=== PATIENT | male | born 1980 | race American Indian/Alaskan Native ===

== ENCOUNTER 2017-10-21 16:33 | Emergency (ER) | payer SELFPAY ==
[2017-10-21] MEDS ORDERED: NACL 0.9% 1000 ML 1,000 ML IV ONE (17:05)
[2017-10-21 17:40] LABS: Basophils % (Auto) 0.4 % (0.0-1.8); Hematocrit 40.7 % (35.5-45.6); Hemoglobin 13.8 gm/dl (11.8-15.2); Lymphocytes # (Auto) 2.1 K/mm3 (1.2-5.4); Lymphocytes % (Auto) 45.2 % (13.4-35.0); Mean Corpuscular HGB Conc 34 % (32-34); Mean Corpuscular Hemoglobin 30 pg (28-32); Mean Corpuscular Volume 88 fl (84-94); Monocytes # (Auto) 0.3 K/mm3 (0.0-0.8); Monocytes % (Auto) 5.4 % (0.0-7.3); Platelet Count 199 K/mm3 (140-440); Red Blood Count 4.64 M/mm3 (3.65-5.03); Red Cell Distribution Width 12.7 % (13.2-15.2)
[2017-10-21 18:37] LABS: Alanine Aminotransferase 14 units/L (7-56); Albumin 4.7 g/dL (3.9-5); BUN/Creatinine Ratio 14; Blood Urea Nitrogen 13 mg/dL (9-20); Calcium 9.3 mg/dL (8.4-10.2); Hemolysis Index 18
--- NOTE | 2017-10-21 21:04 | Emergency Department Report ---
ED Abdominal Pain HPI - General Chief Complaint: Abdominal Pain Stated Complaint: SEVERE ABD PAIN Time Seen by Provider: 10/21/17 20:59 Source: patient Mode of arrival: Ambulatory Limitations: No Limitations - History of Present Illness Initial Comments: Patient is a 36-year-old male that presents emergency room with severe abdominal pain that is worsening. Patient states that abdominal pain started 3 days ago it as a 10 out of 10. Patient states abdominal pain is periumbilical and radiates up to his epigastrium. Patient states the pain is better with rest and worse with movement. Patient states he has taken Advil with some relief. Patient denies nausea and vomiting. Patient denies diarrhea. Patient denies fever chills. Patient denies chest pain shortness of breath. Patient states he has not been on bowel movement for 3 days. Patient states she's had a long history of umbilical hernia without complications. Patient states she is also been having a headache for 3 days. Patient states the headache is improved with Advil. Patient denies dizziness. Patient denies vertigo. Patient denies visual changes. Patient denies confusion. Patient denies LOC. Patient states the pain is better with rest and Advil. Patient states at this moment the headache is a 0 out of 10 and has resolved. MD Complaint: abdominal pain -: Sudden Location: periumbilical Radiation: epigastric Migration to: no migration Severity: severe Severity scale (0 -10): 10 Quality: stabbing Consistency: constant Improves With: rest Worsens With: movement Associated Symptoms: denies other symptoms. denies: nausea, vomiting, diarrhea , fever, chills, constipation, dysuria, hematemesis, hematochezia, melena, hematuria, anorexia, syncope Treatments Prior to Arrival: NSAIDs - Related Data Previous Rx's Medication Instructions Recorded Last Taken Type methylPREDNISolone [Medrol] 4 mg PO DAILY #1 tab.ds.pk 10/22/17 Unknown Rx traMADol [Ultram 50 MG tab] 50 mg PO Q6HR PRN #20 tablet 10/22/17 Unknown Rx Allergies Allergy/AdvReac Type Severity Reaction Status Date / Time No Known Allergies Allergy Unverified 09/24/15 19:05 ED Review of Systems ROS: Stated complaint: SEVERE ABD PAIN Other details as noted in HPI Constitutional: denies: chills, fever Eyes: denies: eye pain, eye discharge, vision change ENT: denies: ear pain, throat pain Respiratory: denies: cough, shortness of breath, wheezing Cardiovascular: denies: chest pain, palpitations Endocrine: no symptoms reported Gastrointestinal: abdominal pain. denies: nausea, diarrhea Genitourinary: denies: urgency, dysuria Musculoskeletal: denies: back pain, joint swelling, arthralgia Skin: denies: rash, lesions Neurological: headache. denies: weakness, paresthesias Psychiatric: denies: anxiety, depression Hematological/Lymphatic: denies: easy bleeding, easy bruising ED Past Medical Hx - Past Medical History Previous Medical History?: No - Surgical History Past Surgical History?: No - Social History Smoking Status: Never Smoker Substance Use Type: None - Medications Home Medications: Home Medications Medication Instructions Recorded Confirmed Last Taken Type methylPREDNISolone [Medrol] 4 mg PO DAILY #1 tab.ds.pk 10/22/17 Unknown Rx traMADol [Ultram 50 MG tab] 50 mg PO Q6HR PRN #20 tablet 10/22/17 Unknown Rx ED Physical Exam - General Limitations: No Limitations General appearance: alert, in no apparent distress - Head Head exam: Present: atraumatic, normocephalic - Eye Eye exam: Present: normal appearance - ENT ENT exam: Present: mucous membranes moist - Neck Neck exam: Present: normal inspection - Respiratory Respiratory exam: Present: normal lung sounds bilaterally. Absent: respiratory distress - Cardiovascular Cardiovascular Exam: Present: regular rate, normal rhythm. Absent: systolic murmur, diastolic murmur, rubs, gallop - GI/Abdominal GI/Abdominal exam: Present: soft, tenderness (tenderness noted periumbilical.), normal bowel sounds, hernia (umbilical hernia noted however is completely reducible and nontender over hernia) - Rectal Rectal exam: Present: deferred - Extremities Exam Extremities exam: Present: normal inspection - Back Exam Back exam: Present: normal inspection - Neurological Exam Neurological exam: Present: alert, oriented X3 - Psychiatric Psychiatric exam: Present: normal affect, normal mood - Skin Skin exam: Present: warm, dry, intact, normal color. Absent: rash ED Course Vital Signs 10/21/17 10/21/17 10/21/17 16:46 21:53 22:00 Temperature 98.9 F 98.2 F Pulse Rate 69 51 L Respiratory 16 18 Rate Blood Pressure 108/62 112/79 Blood Pressure 116/71 [Left] O2 Sat by Pulse 98 99 100 Oximetry 10/21/17 10/21/17 23:00 23:48 Temperature Pulse Rate Respiratory Rate Blood Pressure 105/68 105/68 Blood Pressure [Left] O2 Sat by Pulse 100 98 Oximetry - Reevaluation(s) Reevaluation #1: Discussed all results with patient. Patient agrees with plan of care and discharged home. Patient is stable for discharge. Patient was given discharge instructions. 10/22/17 01:17 ED Medical Decision Making - Lab Data Result diagrams: 10/21/17 17:12 10/21/17 17:12 - Radiology Data Radiology results: report reviewed FINDINGS: The liver, biliary system, pancreas, spleen, adrenal glands, kidneys and bladder are unremarkable. The pelvic organs are normal. There is no evidence of mass, pathological calcification, or fluid collection noted within the abdomen or pelvis. The opacified and unopacified portions of the gastrointestinal tract are unremarkable. Moderate volume formed colonic stool is present. The appendix is not discretely visualized however there is no pericecal inflammatory change identified. There is no lymphadenopathy. No acute osseous abnormality. Incidental fat containing umbilical hernia. IMPRESSION: No CT evidence of acute abdominopelvic process. Moderate volume formed colonic stool. Incidental, fat containing umbilical hernia. Transcribed By: DT Dictated By: PARRIS RENDON DO Electronically Authenticated By: PARRIS RENDON DO Signed Date/Time: 10/22/1748 DD/ TD/TT: 10/22/1748 - Medical Decision Making Patient is a 36-year-old male that presents emergency room with complaints of periumbilical abdominal pain that radiates to the epigastric region. Patient was found to have a umbilical hernia and constipation. CT scan was done and was normal except for constipation and the fat-containing umbilical hernia. Umbilical hernia is reducible. We'll refer patient to a general surgeon for further evaluation and treatment. Patient will be instructed to follow-up with primary care in 3-5 days. Patient will be instructed to take meds as directed and return to ER if condition worsens. Patient given return to ER instructions. - Differential Diagnosis umbilical hernia. Obstruction. Abdominal pain. Gastroenteritis. Critical care attestation.: If time is entered above; I have spent that time in minutes in the direct care of this critically ill patient, excluding procedure time. ED Disposition Clinical Impression: Umbilical hernia without obstruction or gangrene Abdominal pain Qualifiers: Abdominal location: periumbilical Qualified Code(s): R10.33 - Periumbilical pain Headache Qualifiers: Headache type: tension-type Headache chronicity pattern: acute headache Intractability: not intractable Qualified Code(s): G44.209 - Tension-type headache, unspecified, not intractable Constipation Qualifiers: Constipation type: unspecified constipation type Qualified Code(s): K59.00 - Constipation, unspecified Disposition: TO HOME OR SELFCARE Is pt being admited?: No Does the pt Need Aspirin: No Condition: Stable Instructions: Constipation (ED), Tension Headache (ED), High Fiber Diet (ED), Umbilical Hernia (ED), Acute Headache (ED) Additional Instructions: Patient is to follow-up with primary care in 3-5 days. Patient to follow up with general surgeon in 3-5 days. Patient to return to ER if condition worsens. Patient to take Tylenol or ibuprofen when necessary for pain. Patient to increase water. Patient to rest. Prescriptions: methylPREDNISolone [Medrol] 4 mg PO DAILY #1 tab.ds.pk traMADol [Ultram 50 MG tab] 50 mg PO Q6HR PRN #20 tablet PRN Reason: Pain Referrals: PRIMARY CARE,MD [Primary Care Provider] - 3-5 Days JAVED SANCHEZ DO [Staff Physician] - 3-5 Days Forms: Work/School Release Form(ED) Time of Disposition: 01:19
[2017-10-21 21:47] LABS: Bilirubin,Urine NEG (Negative); Blood,Urine NEG (Negative); Color,Urine Yellow (Yellow); Protein,Urine <15 mg/dL mg/dL (Negative); Urobilinogen,Urine < 2.0 mg/dL (<2.0); WBC,Urine < 1.0 /HPF (0.0-6.0)
[2017-10-21] MEDS ORDERED: DILAUDID IV ONE (22:55)
[2017-10-21] MEDS ORDERED: NACL 0.9% 1000 ML 1,000 ML ONE (23:09)
[2017-10-21 23:48] VITALS: BP 105/68
--- NOTE | 2017-10-22 00:49 | Cat Scan Report ---
FINAL REPORT EXAM: CT ABDOMEN PELVIS W CON HISTORY: Abdominal pain TECHNIQUE: CT evaluation performed of the abdomen and pelvis following IV and oral contrast administration. Coronal and sagittal imaging also provided for interpretation. PRIORS: None. FINDINGS: The liver, biliary system, pancreas, spleen, adrenal glands, kidneys and bladder are unremarkable. The pelvic organs are normal. There is no evidence of mass, pathological calcification, or fluid collection noted within the abdomen or pelvis. The opacified and unopacified portions of the gastrointestinal tract are unremarkable. Moderate volume formed colonic stool is present. The appendix is not discretely visualized however there is no pericecal inflammatory change identified. There is no lymphadenopathy. No acute osseous abnormality. Incidental fat containing umbilical hernia. IMPRESSION: No CT evidence of acute abdominopelvic process. Moderate volume formed colonic stool. Incidental, fat containing umbilical hernia.
== END 2017-10-22 01:45 | disposition home or self-care (01) ==
LOC: ED 16:33
DX: K42.9 Umbilical hernia without obstruction or gangrene (principal); G44.209 Tension-type headache, unspecified, not intractable
CPT/HCPCS: 36415; 74177; 80053; 81001; 83690; 85025; 96374; 99284; J1170; J7030; Q9967